=== PATIENT | female | born 1960 | race Caucasian/White ===

== ENCOUNTER 2018-03-20 07:58 | Outpatient (CLI) | payer BC ==
--- NOTE | 2018-03-20 10:05 | MRI ---
MRI OF THE RIGHT ANKLE WITHOUT CONTRAST: INDICATION: History of right ankle pain since December after the patient had an ankle injury where she twisted her an kle. COMPARISON: Right foot radiograph dated 07/15/2014 from [facility]. TECHNIQUE: Multiplanar, multisequence MR images were obtained of the right hind foot without IV contrast. FINDINGS: The ATPFL, PTFL, and calcaneal fibular ligaments are intact. The syndesmotic ligaments are intact. The deep deltoid is intact. Visualized aspects of the spring ligament appear intact. There is a par tial thickness tear of the peroneus brevis at the level of the lateral malleolus with mild peroneal t enosynovitis. The posterior tibialis, flexor digitorum, and flexor hallucis longus tendons are ale l-appearing. The tibialis anterior, EHL, and extensor digitorum longus tendons appear normal. There is normal appearance to the Achilles tendon and Achilles insertion. The attachment to the plantar a spect of the calcaneus of the medial plantar fascia. vein demonstrate some surrounding high increased T2 signal suspicious for very mild plantar fasciitis. Sinus tarsi has a normal signal intensity. T here is a nondisplaced fracture involving the anterior calcaneal process that is best seen on image 8 out series 7. No additional fracture is evident. The visualized Lisfranc ligament appears intact. IMPRESSION: 1. Nondisplaced fracture involving the anterior calcaneal process. 2. Partial thickness tear of the peroneus brevis tendon at the level of the lateral malleolus with m oderate peroneal tenosynovitis. 3. Mild plantar fasciitis of the medial plantar fascial band attachment to the plantar calcaneus. POS: KELSEY
== END 2018-03-20 07:59 | disposition home or self-care (01) ==
LOC: MRI 07:58
PROVIDERS: ATTEND Orthopaedic Surgery
DX: M25.571 Pain in right ankle and joints of right foot (principal); S92.024A Nondisplaced fracture of anterior process of right calcaneus, initial encounter for closed fracture; S86.811A Strain of other muscle(s) and tendon(s) at lower leg level, right leg, initial encounter; M65.871 Other synovitis and tenosynovitis, right ankle and foot; M72.2 Plantar fascial fibromatosis

== ENCOUNTER 2018-04-24 05:55 | Day surgery (SDC) | payer BC ==
[2018-04-23 11:09] VITALS: BMI 27.4
[2018-04-24] MEDS ORDERED: Fentanyl 100 MCG/2 ML VIAL ONE ×3 (06:33→10:02)
[2018-04-24] MEDS ORDERED: Midazolam HCl 2 mg/2 ml Vial ONE (06:33)
[2018-04-24 06:48] LABS: Hemoglobin 14.3 g/dL (12.0-16.0); Mean Corpuscular HGB CONC 32.5 g/dL (32.0-36.0); Mean Corpuscular Hemoglobin 31.7 pg (27.0-31.0); Mean Corpuscular Volume 97.5 fL (78.0-98.0); Mean Platelet Volume 8.7 fL (7.4-10.4); Platelet Count 294 thou/uL (130-400); RBC Distribution Width 12.1 % (11.5-14.5); White Blood Cell (WBC) Count 5.6 thou/uL (4.8-10.8)
[2018-04-24] MEDS ORDERED: CEFAZOLIN 2 GM/50 ML BAG ONE (06:56)
[2018-04-24 07:12] LABS: Anion Gap 12 mmol/L (10-20); BUN (Urea Nitrogen) 16 mg/dL (9.8-20.1); Calc. Creatinine Clearance 72 mL/min (70-130); Carbon Dioxide 28 mmol/L (22-29); Chloride 106 mmol/L (98-107); Estimated GFR-MDRD 57; Glucose 84 mg/dL (70-105); Potassium 4.2 mmol/L (3.5-5.1); Sodium 142 mmol/L (136-145)
[2018-04-24] MEDS ORDERED: Promethazine HCl 25 MG/ML VIAL IM PRN (07:58)
[2018-04-24] MEDS ORDERED: Ondansetron PF 4 MG/2 ML Vial IVP PRN (07:58)
[2018-04-24] MEDS ORDERED: traMADol HCl 50 MG TAB PO PRN ×2 (07:58)
[2018-04-24] MEDS ORDERED: Zolpidem Tartrate 5 MG TAB PO PRN (07:58)
[2018-04-24] MEDS ORDERED: Ropivacaine 0.2% 550 ML 550 ML NERVE BLCK SCH (07:58)
[2018-04-24] MEDS ORDERED: HYDROcodone/Acetaminophen 10/325 mg Tablet PO PRN ×2 (07:58)
[2018-04-24] MEDS ORDERED: Fentanyl 100 MCG/2 ML VIAL IV PRN (07:59)
[2018-04-24] MEDS ORDERED: Bupivacaine PF 0.5% 30 ML VIAL ONE (09:07)
[2018-04-24] MEDS ORDERED: Ropivacaine 0.5% HCl/PF (150 MG/30 ML VIAL) ONE (13:16)
[2018-04-24] MEDS ORDERED: Ropivacaine 0.2% HCl/PF (40 MG/20 ML VIAL) ONE (13:16)
[2018-04-24] MEDS ORDERED: Ketorolac Tromethamine 30 MG/ML VIAL ONE (13:51)
[2018-04-24] MEDS ORDERED: Ondansetron PF 4 MG/2 ML Vial ONE (13:51)
[2018-04-24] MEDS ORDERED: Lidocaine 1% PF 5 ML VIAL ONE (13:51)
[2018-04-24] MEDS ORDERED: PROPOFOL 200 MG/20 ML VIAL ONE (13:51)
--- NOTE | 2018-04-24 18:39 | OP ---
DATE OF PROCEDURE: 04/24/2018 PREOPERATIVE DIAGNOSES: 1. Peroneus brevis tear to right ankle. 2. Anterior process calcaneus fracture. 3. Bilateral great toe ingrown nail deformities. POSTOPERATIVE DIAGNOSES: 1. Peroneus brevis tear to right ankle. 2. Anterior process calcaneus fracture. 3. Bilateral great toe ingrown nail deformities. PROCEDURES: 1. Right foot repair of peroneus brevis tendon. 2. Excision anterior process fragment, right calcaneus. 3. Bilateral marginal nail ablations great toes. ANESTHESIA: General. SURGEON: Darien August M.D. COMPLICATIONS: None. CONDITION: Good. ESTIMATED BLOOD LOSS: Minimal. DRAINS: None. TOURNIQUET: Per anesthesia. TECHNIQUE: Patient was taken to the operating room and placed in supine position. After adequate ge neral anesthesia achieved, the tourniquet was placed on the right upper thigh. Leg was elevated, exs anguinated, and tourniquet inflated prior to incision. On initial evaluation, there is no significan t swelling or ligamentous instability. Full range of motion of the ankle. The posterolateral incisi on was made beginning at the superior peroneal retinaculum extending down distally to the calcaneocub oid joint. The extensor retinaculum was incised. The peroneus longus and brevis tendons were expose d. The longus tendon is normal. Brevis tendon had flattening and incomplete longitudinal splits pos terior to the fibula. There is no instability or retinacular insufficiency. The peroneus brevis was repaired with some 2-0 PDS suture in a running fashion. The retinaculum was then repaired with some 3-0 FiberWire and 0 Vicryl in anatomic position. The calcaneocuboid joint was then exposed along wi th anterior process of the calcaneus after elevation of the extensor brevis muscle. The patient had chronic appearing nonunion of the fragment which was removed without difficulty. He also had some si gnificant degenerative changes in the calcaneocuboid joint with articular thinning and irregularity. It was then irrigated, debrided, and the brevis muscle repaired with some 0 Vicryl. Subcu with 3-0 Vicryl and skin with 4-0 nylon. The great toes were then prepped and draped in the medial and latera l nail margins and had significant chronic ingrown deformities with angulation. The terminal matrix was then exposed and the medial and lateral 2-3 mm of the nail plate was removed. The terminal matri x was resected and after copious irrigation, the proximal oblique incision was closed with some 4-0 n ylon. A sterile bulky dressing was applied. This identical procedure was done on the left great toe nail. There is no evidence of infection. The patient will be limited weightbearing on the right marilou t and limited weightbearing with the left. We will follow up for suture removal.
--- NOTE | 2018-04-26 10:33 | EKG ---
Test Reason : PREOP Blood Pressure : / mmHG Vent. Rate : 061 BPM Atrial Rate : 061 BPM P-R Int : 150 ms QRS Dur : 094 ms QT Int : 430 ms P-R-T Axes : 009 -12 006 degrees QTc Int : 432 ms Normal sinus rhythm Nonspecific T wave abnormality Abnormal ECG When compared with ECG of 14-JUL-2004 18:52, Nonspecific T wave abnormality now evident in Lateral leads Confirmed by DR. Lencho SHIELDS ([id number]) on 04/26/2018 10:33:09 AM Referred By: PUJA Confirmed By:DR. Lencho SHIELDS
== END 2018-04-24 12:10 | disposition home or self-care (01) ==
LOC: SDC 05:55
PROVIDERS: ATTEND Orthopaedic Surgery
PROC: 0QSL0ZZ Reposition Right Tarsal, Open Approach (ICD-10-PCS; principal; 2018-04-24)
PROC: 0LQN0ZZ Repair Right Lower Leg Tendon, Open Approach (ICD-10-PCS; principal; 2018-04-24)
PROC: 0HTRXZZ Resection of Toe Nail, External Approach (ICD-10-PCS; principal; 2018-04-24)
DX: S92.024A Nondisplaced fracture of anterior process of right calcaneus, initial encounter for closed fracture (principal); S86.311A Strain of muscle(s) and tendon(s) of peroneal muscle group at lower leg level, right leg, initial encounter; L60.0 Ingrowing nail; K21.9 Gastro-esophageal reflux disease without esophagitis; Z79.899 Other long term (current) drug therapy; Z88.8 Allergy status to other drugs, medicaments and biological substances; Z91.012 Allergy to eggs; Z91.048 Other nonmedicinal substance allergy status
CPT/HCPCS: 76001; 80048; 85027; 93005; 93010; 96374; A4306; J1885; J2001; J2250; J2405; J2704; J2795; J3010; S0020

== ENCOUNTER 2018-07-17 07:52 | Outpatient (CLI) | payer BC | END 2018-07-17 07:53 | disposition home or self-care (01) | LOC: BICMAMMO 07:52 | PROVIDERS: ATTEND Family Medicine | DX: Z12.31 Encounter for screening mammogram for malignant neoplasm of breast (principal); R92.1 Mammographic calcification found on diagnostic imaging of breast | CPT/HCPCS: 77063; 77067 ==

== ENCOUNTER 2019-03-21 11:37 | Inpatient (IN) | payer BC ==
--- NOTE | 2019-03-21 12:28 | RAD ---
Right hip 2 views HISTORY: Fall. Right hip injury. FINDINGS: Slight shortening of the right femoral neck with irregular sclerotic line. Mild joint space narrowing and osteophytosis. Femoral head contour is maintained. IMPRESSION: Slightly impacted nondisplaced fracture right femoral neck.
--- NOTE | 2019-03-21 12:29 | RAD ---
AP pelvis one view HISTORY: Fall. Hip pain. FINDINGS: Oblique sclerosis across the right femoral neck with slight shortening. No displacement. Mi ld degenerative changes of each hip. Sacroiliac alae and pelvic rings are intact. IMPRESSION: Mildly impacted nondisplaced fracture right femoral neck. Age indeterminate. MRI could be used to evaluate for edema is needed.
[2019-03-21] MEDS ORDERED: Acetaminophen 325 MG TAB ONE (12:32)
[2019-03-21 14:15] LABS: #Basophils 0.1 thou/uL (0.0-0.2); #Eosinphils 0.2 thou/uL (0.0-0.7); #Lymphocytes 1.1 thou/uL (1.20-3.40); #Monocytes 0.4 thou/uL (0.11-0.59); #Neutrophils 6.1 thou/uL (1.40-6.50); %Basophils 0.9 % (0.0-1.0); %Eosinophils 2.4 % (0.0-10.0); %Lymphocytes 14.2 % (21.0-51.0); %Monocytes 4.8 % (0.0-10.0); %Neutrophils 77.7 % (42.0-75.0); Hemoglobin 14.3 g/dL (12.0-16.0); Mean Corpuscular HGB CONC 34.5 g/dL (32.0-36.0); Mean Corpuscular Hemoglobin 33.2 pg (27.0-31.0); Mean Corpuscular Volume 96.4 fL (78.0-98.0); Platelet Count 205 thou/uL (130-400); RBC Distribution Width 11.7 % (11.5-14.5); Red Blood Cell (RBC) Count 4.29 mill/uL (4.20-5.40); White Blood Cell (WBC) Count 7.9 thou/uL (4.8-10.8)
[2019-03-21 14:35] LABS: ALT (SGPT) 15 U/L (8-55); AST (SGOT) 24 U/L (5-34); Albumin 4.8 g/dL (3.5-5.0); Alkaline Phosphatase 79 U/L (40-110); Anion Gap 15 mmol/L (10-20); BUN (Urea Nitrogen) 11 mg/dL (9.8-20.1); Bilirubin, Total 0.9 mg/dL (0.2-1.2); Calc. Creatinine Clearance 0 mL/min (70-130); Calcium 9.7 mg/dL (7.8-10.44); Carbon Dioxide 24 mmol/L (22-29); Chloride 103 mmol/L (98-107); Estimated GFR-MDRD 58; Globulin 3.2 g/dL (2.4-3.5); Glucose 89 mg/dL (70-105); Potassium 3.7 mmol/L (3.5-5.1); Sodium 138 mmol/L (136-145)
[2019-03-21] MEDS ORDERED: Morphine 2 MG/ML SYRINGE SLOW IVP PRN (14:41)
[2019-03-21] MEDS ORDERED: hydrALAZINE 20 MG/ML VIAL SLOW IVP PRN (14:41)
[2019-03-21] MEDS ORDERED: Ondansetron PF 4 MG/2 ML Vial IVP PRN ×2 (14:41→18:35)
[2019-03-21] MEDS ORDERED: Ondansetron ODT 4 MG TAB PO PRN ×2 (14:41→18:35)
[2019-03-21] MEDS ORDERED: Dextrose 5% in Water 1,000 ML IV PRN (14:41)
[2019-03-21] MEDS ORDERED: Dextrose 50% Abboject 50 ML SYRINGE SLOW IVP PRN (14:41)
[2019-03-21] MEDS ORDERED: Sodium Chloride 0.9% 1,000 ML IV SCH (14:45)
[2019-03-21] MEDS ORDERED: traMADol HCl 50 MG TAB PO PRN ×2 (14:50)
[2019-03-21] MEDS ORDERED: Morphine 4 MG/ML VIAL ONE ×2 (14:51→15:57)
--- NOTE | 2019-03-21 15:24 | HP ---
HISTORY OF PRESENT ILLNESS: This is a 58-year-old female who presented to the emergency room with complaints of right hip pain. The patient states that she tripped and fell 2 nights ago. The patient denies feeling weak or dizzy or having any chest pain or shortness of breath prior to falling. The patient states she slipped on a rug. 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 The patient was able to ambulate with severe pain after the fall. The patient did go and see a chiropractor yesterday, reports the adjustment helped some but continued to have pain. The patient reports that the pain is worse with ambulation. The patient denies losing consciousness or hitting her head. The patient does report scraping her left side of her face on her bed frame. The patient denies any other injuries. Last oral intake 0800. REVIEW OF SYSTEMS: A 10-point review of systems is negative unless otherwise indicated in the above HPI. PAST MEDICAL HISTORY: Starla-Danlos syndrome, ectodermal dysplasia. PAST SURGICAL HISTORY: Bilateral knee surgery, sinus surgery, right ankle surgery, multiple foot surgeries, hysterectomy, cholecystectomy, appendectomy, tonsillectomy. ALLERGIES: PHENOBARBITAL, CIPRO. MEDICATIONS: 1. Omeprazole 40 mg at bedtime. 2. Clonazepam 2 mg at bedtime. SOCIAL HISTORY: Denies any drug use, denies smoking history, reports alcohol use occasionally. PHYSICAL EXAMINATION: VITAL SIGNS: Blood pressure 134/88, pulse 95, respirations 18, temperature 98.2 , SpO2 of 95% on room air. GENERAL: Middle-aged female, well appearing, in no acute distress, sitting up in the ER bed. HEENT: Head is normocephalic. Abrasion to the left cheek. Pupils equal and reactive bilateral. No neck tenderness. Normal range of motion of neck. Extraocular muscles intact. Normal nose exam. RESPIRATORY: Equal chest rise and fall. Bilateral breath sounds clear with no wheezing, rales, or rhonchi. CARDIOVASCULAR: Regular rate. Regular rhythm. No murmurs. No pedal edema. ABDOMEN: Soft, nontender, nondistended. EXTREMITIES: Moves all extremities. Positive distal pulses, 2+ in all extremities. Tenderness to right hip. NEUROLOGIC: No focal deficits. No motor deficits. DIAGNOSTIC DATA: A 12-lead EKG; sinus rhythm with nonspecific ST and T-wave abnormalities. Pelvis x-ray; mildly impacted nondisplaced fracture of right femoral neck. Right hip x-ray; impression, slightly impacted nondisplaced fracture of right femoral neck. LABORATORY DATA: WBC 7.9, RBC 4.29, hemoglobin 14.3, hematocrit 41.4, and platelets 205. Sodium 138, potassium 3.7, chloride 103, carbon dioxide 24, BUN 11, creatinine 0.98, estimated GFR 58, glucose 89, AST 24, ALT 15. IMPRESSION: 1. Status post mechanical fall with delayed presentation. 2. Right nondisplaced femoral neck fracture. 3. History of Starla-Danlos syndrome. PLAN: Dr. Jovel with Orthopedic Surgery plans to take the patient to the OR today. The patient will be n.p.o. until postop. We will advance the patient's diet as tolerated. We will place the patient on maintenance IV fluids. We will place the patient on a pain regimen and a bowel regimen. We will place a PT/OT consult to evaluate and treat postop. We will also place a rehab screen in case the patient may need some additional rehab postop, although the patient states that she does not feel that she will need additional rehab. The plan will be discussed with the attending after this dictation. Job ID: [id number] MTDD
--- NOTE | 2019-03-21 15:32 | RAD ---
PORTABLE CHEST ONE VIEW: 03/21/2019 2:31 p.m. HISTORY: Preop evaluation. Right femur fracture. FINDINGS: The heart size is normal. The lungs are expanded without focal areas of consolidation, pneumothoraces or pleural effusions. IMPRESSION: No radiographic evidence of acute cardiopulmonary process. POS: SUHAIL
--- NOTE | 2019-03-21 16:19 | HP ---
HISTORY OF PRESENT ILLNESS: She is a very pleasant 58-year-old woman, who injured herself when she fell plugging in a cord 2 days ago. She has been unable to walk since that time with full weightbearing. She has crutches. PAST MEDICAL HISTORY: Positive for Starla-Danlos syndrome and dermal ectasias. ALLERGIES: PHENOBARBITAL AND ITS DERIVATIVES CAUSE HYPERACTIVITY. SOCIAL HISTORY: Does not smoke. She drinks alcohol occasionally. She lives with her daughter and is normally a community ambulator and works at a bank, stands all day. PHYSICAL EXAMINATION: GENERAL: Shows a pleasant woman, in no distress. HEENT: Normocephalic, atraumatic. LUNGS: Clear. HEART: Regular rate and rhythm. ABDOMEN: Soft and nontender. MUSCULOSKELETAL: Right hip shows pain with rotation. Normal leg lengths. . IMAGING DATA: Radiograph showed a femoral neck fracture, impacted. PLAN: At this time is for percutaneous fixation. I had a very lengthy discussion with her about risk of infection, stiffness, blood clots, most important risk for avascular necrosis and nonunion, which require a total hip arthroplasty. She understands and elected to proceed with surgery. Job ID: [id number]
[2019-03-21] MEDS ORDERED: Lidocaine 1% w/Epinephrine 1:100K 30 ML VIAL ONE (17:13)
[2019-03-21] MEDS ORDERED: Bupivacaine/Epinephrine 0.25% 30 ML VIAL ONE (17:13)
[2019-03-21] MEDS ORDERED: Propofol 500 MG/50 ML VIAL ONE (17:14)
[2019-03-21] MEDS ORDERED: Ketamine 50 MG/ML (10ML VIAL) ONE (17:14)
[2019-03-21] MEDS ORDERED: Fentanyl 100 MCG/2 ML VIAL ONE (17:14)
[2019-03-21] MEDS ORDERED: Midazolam HCl 2 mg/2 ml Vial ONE (17:39)
[2019-03-21] MEDS ORDERED: Ondansetron HCl/PF 4 MG/2 ML Vial IVP PRN (18:34)
[2019-03-21] MEDS ORDERED: Promethazine HCl 25 MG/ML VIAL SLOW IVP PRN (18:34)
[2019-03-21] MEDS ORDERED: Promethazine HCl 25 MG/ML VIAL IM PRN (18:34)
[2019-03-21] MEDS ORDERED: Milk Of Magnesia 30 ML UDCUP PO PRN (18:35)
[2019-03-21] MEDS ORDERED: Bisacodyl 10 MG SUPP PR PRN (18:35)
[2019-03-21] MEDS ORDERED: Fleet Enema 133 ML BOT PR PRN (18:35)
[2019-03-21] MEDS ORDERED: Cepastat Lozenges 1 LOZ PO PRN (18:35)
[2019-03-21] MEDS ORDERED: HYDROcodone/Acetaminophen 10/325 mg Tablet PO PRN ×2 (18:38)
[2019-03-21] MEDS ORDERED: Aspirin Chewable 81 MG TAB PO SCH (19:15)
--- NOTE | 2019-03-21 20:25 | RAD ---
Exam: Right hip 2 views: HISTORY: Status post ORIF Findings/impression: 3 internal fixation screws stabilize the femoral neck subcapital femoral neck fracture.
[2019-03-21] MEDS: Acetaminophen 500 MG TAB PO SCH (20:51)
[2019-03-21] MEDS: Senokot S 8.6-50 MG TAB PO SCH (20:51)
[2019-03-21] MEDS ORDERED: Senokot S 8.6-50 MG TAB PO SCH (21:00)
[2019-03-21] MEDS ORDERED: Famotidine 20 MG TAB PO SCH (21:00)
--- NOTE | 2019-03-22 00:47 | PRG ---
DATE OF SERVICE: 03/21/2019 SUBJECTIVE: Patient was seen this evening, lying in bed. She was resting comfortably and was easily arousable. She reported her pain was well controlled. She is postoperative day zero after fixation of her right hip fracture. She reported she ate a full meal after surgery and a Charlton catheter is in place. OBJECTIVE: VITAL SIGNS: Temperature 98, pulse 70, respirations 16, oxygen saturation 93% on room air, and blood pressure 95/60. GENERAL: Well-appearing elderly female, lying in bed with no signs of acute distress. PULMONARY: Equal chest rise and fall. No signs of acute respiratory distress. EXTREMITIES: 2+ pulses in all extremities. No significant swelling noted. Gross motor and sensation intact. ASSESSMENT: 1. Status post mechanical fall from standing, two days before presentation. 2. Right femoral neck fracture, status post repair. 3. History of Starla-Danlos and ectodermal dysplasia. PLAN: We will continue the patient's regular diet as prescribed postoperatively. We will discontinue her IV fluids and continue current pain medications. She will work with Physical and Occupational Therapy starting tomorrow. Patient would like to go home and not rehab. We will discontinue Charlton tomorrow. Job ID: [id number]
[2019-03-22] MEDS: CEFAZOLIN 2 GM in Premix Bag 1 BAG IVPB SCH ×2 (01:11→08:13)
[2019-03-22] MEDS: Acetaminophen 500 MG TAB PO SCH ×3 (01:12→11:35)
[2019-03-22 04:51] LABS: #Basophils 0.1 thou/uL (0.0-0.2); #Eosinphils 0.3 thou/uL (0.0-0.7); #Lymphocytes 1.4 thou/uL (1.20-3.40); #Monocytes 0.5 thou/uL (0.11-0.59); #Neutrophils 4.8 thou/uL (1.40-6.50); %Basophils 0.8 % (0.0-1.0); %Eosinophils 4.4 % (0.0-10.0); %Lymphocytes 19.8 % (21.0-51.0); %Monocytes 6.5 % (0.0-10.0); %Neutrophils 68.6 % (42.0-75.0); Hemoglobin 12.2 g/dL (12.0-16.0); Mean Corpuscular HGB CONC 33.7 g/dL (32.0-36.0); Mean Platelet Volume 8.8 fL (7.4-10.4); Platelet Count 185 thou/uL (130-400); RBC Distribution Width 11.9 % (11.5-14.5); Red Blood Cell (RBC) Count 3.68 mill/uL (4.20-5.40); White Blood Cell (WBC) Count 6.9 thou/uL (4.8-10.8)
[2019-03-22 05:10] LABS: Phosphorus 4.7 mg/dL (2.3-4.7)
[2019-03-22 05:20] LABS: Anion Gap 10 mmol/L (10-20); BUN (Urea Nitrogen) 12 mg/dL (9.8-20.1); Calc. Creatinine Clearance 69 mL/min (70-130); Calcium 8.2 mg/dL (7.8-10.44); Carbon Dioxide 25 mmol/L (22-29); Chloride 108 mmol/L (98-107); Estimated GFR-MDRD 55; Glucose 91 mg/dL (70-105); Magnesium 2.1 mg/dL (1.6-2.6); Potassium 4.2 mmol/L (3.5-5.1); Sodium 139 mmol/L (136-145)
[2019-03-22] MEDS: Senokot S 8.6-50 MG TAB PO SCH (08:13)
[2019-03-22] MEDS ORDERED: Ferrous Gluconate 324 MG TAB PO SCH (09:00)
[2019-03-22] MEDS ORDERED: Multivitamin W/ Minerals 1 TAB PO SCH (09:00)
[2019-03-22] MEDS ORDERED: Aspirin 81 mg Enteric Coated Tablet PO SCH (09:00)
[2019-03-22] MEDS ORDERED: FLU VACC QS2019-20(6MOS UP)/PF 60 MCG/0.5 ML SYRINGE IM ONE (09:00)
[2019-03-22] MEDS ORDERED: Polyethylene Glycol 3350 17 GM Packet PO SCH (09:00)
--- NOTE | 2019-03-22 09:02 | PRG ---
DATE OF SERVICE: 03/22/2019 SUBJECTIVE: Postop day 1 for an ORIF of hip by Dr. Jovel. Ms. Reid is complaining of some groin pain. She was hemodynamically stable overnight. OBJECTIVE: CHEST: Clear. HEART: Regular rate. ABDOMEN: Soft, nontender. ASSESSMENT: Postop day 1, right hip pinning. PLAN: PT and Case Management to figure out her disposition. There is a possibility she will be able to go home. Job ID: [id number]
[2019-03-22] MEDS ORDERED: HYDROcodone/Acetaminophen 10/325 mg Tablet PO PRN (09:30)
[2019-03-22] MEDS ORDERED: Acetaminophen 650 MG in Premix Bag 1 BAG IVPB SCH (09:45)
--- NOTE | 2019-03-22 11:27 | PRG ---
DATE OF SERVICE: 03/22/2019 SUBJECTIVE: Vira is a 58-year-old female, who is postop day 1 from a right femoral neck impacted fracture, status post cannulated screw fixation. She is doing relatively well. Her pain is controlled. She has very little complaints today. OBJECTIVE: VITAL SIGNS: Her temperature is 97.9, pulse 74, respiratory rate 18, and blood pressure is 99/66. NEUROLOGIC: She is alert and oriented to person, place, time, and situation, responsive, appropriate with examiner. Grossly nonfocal. Her incision is clean and closed. No leg length discrepancy. No shortening. No malrotation. LABORATORY DATA: Hemoglobin and hematocrit are 12.2 and 36.1. IMPRESSION: Postop day 1, cannulated screw fixation secondary to right femoral neck fracture. PLAN: Continue current care. Discontinue Charlton. The patient will be stable for discharge when she is ambulatory and voiding. Job ID: [id number]
[2019-03-22 14:46] VITALS: BP 118/82; TEMP 98.1
--- NOTE | 2019-03-22 16:10 | DIS ---
DATE OF ADMISSION: 03/21/2019 DATE OF DISCHARGE: 03/22/2019 This is Kaity Ferguson NP dictating a report for Chi French MD. CONSULTS: Orthopedic Surgery, Dr. Jovel. PROCEDURES: 1. On 03/21/2019, the patient was taken to the OR for repair of her right femoral neck fracture by Dr. Jovel. 2. On 03/21/2019, right hip x-ray, impression, slightly impacted nondisplaced fracture of the right femoral neck fracture. 3. On 03/21/2019, pelvis x-ray, impression, mildly impacted nondisplaced fracture of the right femoral neck. 4. On 03/21/2019, chest x-ray, impression, no evidence of acute cardiopulmonary process. PRIMARY DIAGNOSES: Mechanical fall, right femoral neck fracture, left cheek abrasion. SECONDARY DIAGNOSES: Starla-Danlos and ectodermal dysplasia history. DISCHARGE MEDICATIONS: 1. Hydrocodone/acetaminophen 10/325 p.o. q.[address] p[address]r.n. pain per Dr. Jovel. 2. Acetaminophen 650 mg q.6 hours as needed. 3. Aspirin 81 mg b.i.d. for 30 days. 4. Clonazepam 1 mg p.o. at bedtime. 5. Omeprazole 20 mg p.o. daily. 6. Senokot-S as needed. DISCONTINUED MEDICATIONS: None. HISTORY OF PRESENT ILLNESS AND HOSPITAL COURSE: This is a 58-year-old female who presented to the emergency room with complaints of right hip pain. The patient states she tripped and fell 2 nights prior to arriving at the emergency room. The patient denied feeling weak or dizzy or having any chest pain or shortness of breath prior to falling. The patient states that she tripped on a rug which caused her to fall. 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 The patient was able to ambulate with severe pain after the fall. The patient did seek care by a chiropractor and had adjustment and states that it helped with the pain, but the pain continued to increase with ambulation. The patient denies any loss of consciousness or hitting her head. The patient was evaluated by Orthopedic Surgery and was taken to the operating room for repair of her right femoral neck fracture. The patient was not able to tolerate tramadol postop for pain management. The patient states that it gave her headache and tramadol does not work. The patient was switched to [place] by Dr. Jovel. The patient was able to ambulate well without any assistance. The patient insisted on being discharged home and did not feel the need for inpatient rehab. On the day of discharge, the patient's vital signs were stable and her exam was unremarkable including cardiopulmonary and GI exam. The patient was deemed stable for discharge home. DISPOSITION: Stable. DISCHARGE INSTRUCTIONS: 1. Location: Home. 2. Diet: Regular diet. 3. Activity: Orthopedic limitations, 50% weightbearing to right lower extremity, the patient is to use crutches or a walker when ambulating. 4. Followup: Follow up with Dr. Jovel in 3 to 4 weeks as directed. Job ID: [id number]
[2019-03-22] MEDS ORDERED: clonazePAM 1 MG TAB PO SCH (21:00)
--- NOTE | 2019-03-23 10:58 | OP ---
DATE OF PROCEDURE: 03/21/2019 PREOPERATIVE DIAGNOSIS: Nondisplaced impacted right femoral neck fracture. POSTOPERATIVE DIAGNOSIS: Nondisplaced impacted right femoral neck fracture. PROCEDURES: Pinning of the right hip. ANESTHESIA: TIVA, local. BLOOD LOSS: Minimal. SPECIMEN: None. COMPLICATIONS: None. DESCRIPTION OF PROCEDURE: The patient was taken to the operating room, where general anesthesia was induced. She received Ancef preoperatively. Right hip was prepped and draped in a sterile fashion. I made a small incision over the hip. Three guide pins were placed for the Synthes percutaneous screws set. Screws were inserted without difficulty with good compression across the fracture. Biplane images were obtained, which showed appropriate screw length and no penetration of the joint. Local anesthesia had been injected preoperatively, and I did a little bit x-ray at the end of the case. A mixture of Marcaine and lidocaine. The skin was closed with 4-0 Monocryl. Sterile dressing was applied. Job ID: [id number]
== END 2019-03-22 14:34 | disposition home or self-care (01) | DRG 481 ==
LOC: ERS 11:37 → SDC/OP 18:16 → SURG A 18:39
PROVIDERS: ADMIT Surgery; ATTEND Surgery
PROC: 0QH634Z Insertion of Internal Fixation Device into Right Upper Femur, Percutaneous Approach (ICD-10-PCS; principal; 2019-03-19)
PROC: 3E02340 Introduction of Influenza Vaccine into Muscle, Percutaneous Approach (ICD-10-PCS; 2019-03-22)
DX: S72.044A Nondisplaced fracture of base of neck of right femur, initial encounter for closed fracture (principal); Q79.60 Ehlers-Danlos syndrome, unspecified; W01.0XXA Fall on same level from slipping, tripping and stumbling without subsequent striking against object, initial encounter; S00.81XA Abrasion of other part of head, initial encounter; Z79.899 Other long term (current) drug therapy; Q82.4 Ectodermal dysplasia (anhidrotic); Z88.8 Allergy status to other drugs, medicaments and biological substances; Z88.1 Allergy status to other antibiotic agents; Z23 Encounter for immunization; Z91.048 Other nonmedicinal substance allergy status; Z91.012 Allergy to eggs; Z90.49 Acquired absence of other specified parts of digestive tract
CPT/HCPCS: 36415; 71045; 72170; 76000; 80048; 80053; 83735; 84100; 84484; 85025; 93005; 96374; 96376; J0131; J0690; J2001; J2250; J2270; J2405; J2704; J3010; Q0162

== ENCOUNTER 2019-11-27 13:36 | Outpatient (CLI) | payer BC | END 2019-11-27 13:37 | disposition home or self-care (01) | LOC: CTENTCT 13:36 | PROVIDERS: ATTEND Student in an Organized Health Care Education/Training Program | DX: J32.9 Chronic sinusitis, unspecified (principal) | CPT/HCPCS: 70486 ==

== ENCOUNTER 2020-07-15 12:23 | Outpatient (CLI) | payer BC ==
--- NOTE | 2020-07-15 13:09 | MMO ---
Bilateral MAMMO Bilat Screen [facility]DI[facility]CRYSTAL. CLINICAL HISTORY: Patient is 59 years old and is seen for screening. The patient has no family history of breast cancer. The patient has no personal history of cancer. VIEWS: The views performed were: bilateral craniocaudal with tomosynthesis and bilateral mediolateral oblique with tomosynthesis. FILMS COMPARED: The present examination has been compared to prior imaging studies performed at [facility] on 07/15/2014, 07/26/2015, 07/30/2016 and 07/17/2018. This study has been interpreted with the assistance of computer-aided detection. MAMMOGRAM FINDINGS: There are scattered fibroglandular densities. There are stable benign appearing calcifications seen in both breasts. There are no suspicious masses, suspicious calcifications, or new areas of architectural distortion. IMPRESSION: THERE IS NO MAMMOGRAPHIC EVIDENCE OF MALIGNANCY. A ROUTINE FOLLOW-UP MAMMOGRAM IN 1 YEAR IS RECOMMENDED. THE RESULTS OF THIS EXAM WERE SENT TO THE PATIENT. ACR BI-RADS Category 2 - Benign finding MAMMOGRAPHY NOTE: 1. A negative mammogram report should not delay a biopsy if a dominant of clinically suspicious mass is present. 2. Approximately 10% to 15% of breast cancers are not detected by mammography. 3. Adenosis and dense breasts may obscure an underlying neoplasm. Reported by: ALBERT CHAVEZ MD Electonically Signed: [id number]
== END 2020-07-15 12:24 | disposition home or self-care (01) ==
LOC: BICMAMMO 12:23
PROVIDERS: ATTEND Family Medicine
DX: Z12.31 Encounter for screening mammogram for malignant neoplasm of breast (principal)
CPT/HCPCS: 77063; 77067

== ENCOUNTER 2020-09-12 15:15 | Outpatient (CLI) | payer BC | END 2020-09-12 15:16 | disposition home or self-care (01) | LOC: BICMRI 15:15 | PROVIDERS: ATTEND Family Medicine | DX: M51.36 Other intervertebral disc degeneration, lumbar region (principal); M54.17 Radiculopathy, lumbosacral region; M47.816 Spondylosis without myelopathy or radiculopathy, lumbar region; N28.9 Disorder of kidney and ureter, unspecified | CPT/HCPCS: 72148 ==

== ENCOUNTER 2020-12-09 10:28 | Outpatient (CLI) | payer BC | END 2020-12-09 10:29 | disposition home or self-care (01) | LOC: BICULT 10:28 | PROVIDERS: ATTEND Family Medicine | DX: N28.1 Cyst of kidney, acquired (principal) | CPT/HCPCS: 76770 ==

== ENCOUNTER 2021-03-01 12:43 | Outpatient (CLI) | payer BC | END 2021-03-01 12:44 | disposition home or self-care (01) | LOC: BICULT 12:43 | PROVIDERS: ATTEND Orthopaedic Surgery | DX: R22.41 Localized swelling, mass and lump, right lower limb (principal) ==

== ENCOUNTER 2021-03-13 08:37 | Outpatient (CLI) | payer BC ==
[2021-03-13 09:58] LABS: Bilirubin Neg (Negative); Blood, Urine Negative (Negative); Clarity Clear (Clear); Glucose, Urine (Dipstick) Normal (Negative); Ketone, Urine Negative (Negative); Leukocyte Negative (Negative); Nitrite Negative (Negative); Protein, Urine (Dipstick) Negative (Neg-Trace); Urobilinogen Normal mg/dL (Less than 2)
[2021-03-13 10:08] LABS: INR-International Normal Ratio 0.9; Prothrombin Time 10.3 sec (9.5-12.1)
[2021-03-13 10:21] LABS: Anion Gap 15 mmol/L (10-20); BUN (Urea Nitrogen) 12 mg/dL (9.8-20.1); Calc. Creatinine Clearance 0 mL/min (70-130); Calcium 10.1 mg/dL (7.8-10.44); Carbon Dioxide 23 mmol/L (23-31); Chloride 105 mmol/L (98-107); Glucose 84 mg/dL (80-115); Potassium 4.6 mmol/L (3.5-5.1); Sodium 138 mmol/L (136-145)
[2021-03-13 10:28] LABS: #Eosinphils 0.1 10x3/uL (0.0-0.5); #Monocytes 0.4 10x3/uL (0.0-1.1); #Neutrophils 5.1 10x3/uL (1.5-8.4); %Basophils 0.6 % (0.0-2.0); %Eosinophils 1.2 % (0.0-6.0); %Lymphocytes 16.3 % (18.0-47.0); %Monocytes 6.1 % (0.0-10.0); %Neutrophils 75.4 % (40.0-75.0); Hemoglobin 12.6 g/dL (12.0-15.5); Mean Corpuscular HGB CONC 32.3 g/dL (32.0-36.0); Mean Corpuscular Hemoglobin 31.6 pg (27.0-33.0); Mean Corpuscular Volume 97.7 fl (81.6-98.3); Platelet Count 226 10x3/uL (150-450); RBC Distribution Width 12.7 % (11.5-14.5); Red Blood Cell (RBC) Count 3.99 10x6/uL (3.90-5.03); White Blood Cell (WBC) Count 6.8 10x3/uL (3.5-10.5)
[2021-03-13 10:38] LABS: Bacteria/HPF None Seen HPF (None Seen); RBC/HPF 0-3 HPF (0-3); Squamous Epithelial None Seen HPF (0-3); WBC/HPF None Seen HPF (0-3)
[2021-03-13 21:37] LABS: SARS-CoV-2 PCR by NAA Not Detected (NotDetected)
== END 2021-03-13 08:38 | disposition home or self-care (01) ==
LOC: LABBT 08:37
PROVIDERS: ATTEND Orthopaedic Surgery
DX: Z01.818 Encounter for other preprocedural examination (principal); M87.851 Other osteonecrosis, right femur; Z20.822 Contact with and (suspected) exposure to COVID-19
CPT/HCPCS: 80048; 81001; 85025; 85610; 87081; 93005; 93010; U0003; U0005

== ENCOUNTER 2021-03-16 05:31 | Observation (INO) | payer BC ==
[2021-03-14 16:35] VITALS: BMI 29.1
[2021-03-16] MEDS ORDERED: Gentamicin 80 MG/2 ML VIAL ONE (05:58)
[2021-03-16] MEDS ORDERED: Vancomycin 1 GM/200 ML BAG ONE (05:58)
[2021-03-16] MEDS ORDERED: Sodium Chloride 0.9% 100 ML ONE (06:01)
[2021-03-16] MEDS ORDERED: Tranexamic Acid 1,000 MG/10 ML VIAL ONE (06:01)
[2021-03-16] MEDS ORDERED: Gentamicin Sulfate 80 MG in Premix Bag 1 BAG IVPB SCH (06:30)
[2021-03-16] MEDS ORDERED: Midazolam HCl 2 mg/2 ml Vial ONE ×2 (06:32→07:53)
[2021-03-16] MEDS ORDERED: Fentanyl 100 MCG/2 ML VIAL ONE ×2 (06:32→06:51)
[2021-03-16] MEDS ORDERED: Dexamethasone 4 mg/ml Vial ONE (06:33)
[2021-03-16] MEDS ORDERED: Propofol 1,000 MG/100 ML VIAL IV ONE (06:51)
[2021-03-16] MEDS ORDERED: Ketamine 50 MG/ML (10ML VIAL) ONE (06:51)
[2021-03-16] MEDS ORDERED: Phenylephrine 10 MG/ML VIAL ONE (06:51)
[2021-03-16] MEDS ORDERED: Scopolamine 1.5 mg/72 hour Patch ONE (06:55)
[2021-03-16] MEDS ORDERED: Dexamethasone 20 MG/5 ML VIAL ONE ×2 (07:10)
[2021-03-16] MEDS ORDERED: Ketorolac Tromethamine 30 MG/ML VIAL ONE (07:10)
[2021-03-16] MEDS ORDERED: ePHEDrine 50 MG/ML VIAL ONE (07:10)
[2021-03-16] MEDS ORDERED: Bupivacaine HCl 0.5%/Epinephrine 1:200,000/PF 30 ml Vial ONE (07:10)
[2021-03-16] MEDS ORDERED: Glycopyrrolate 0.2 MG/ML 5 ML SYRINGE ONE (07:10)
[2021-03-16] MEDS ORDERED: Ondansetron PF 4 MG/2 ML Vial ONE (07:10)
[2021-03-16] MEDS ORDERED: Bupivacaine PF 0.5% 30 ML VIAL ONE (07:18)
[2021-03-16] MEDS ORDERED: HYDROcodone/Acetaminophen 5/325 mg Tablet ONE (11:56)
[2021-03-16] MEDS ORDERED: Morphine 4 MG/ML VIAL ONE ×2 (12:37→14:08)
[2021-03-16] MEDS ORDERED: HYDROcodone/Acetaminophen 10/325 mg Tablet PO PRN (13:37)
[2021-03-16] MEDS ORDERED: Ondansetron PF 4 MG/2 ML Vial IVP PRN (13:37)
[2021-03-16] MEDS ORDERED: Ondansetron ODT 4 MG TAB PO PRN (13:37)
[2021-03-16] MEDS ORDERED: Sodium Chloride 0.9% 1,000 ML IV SCH (13:45)
[2021-03-16] MEDS ORDERED: SUMAtriptan Succinate 25 MG TAB PO PRN (13:53)
[2021-03-16] MEDS ORDERED: HYDROmorphone 0.5 MG/0.5 ML SYRINGE SLOW IVP SCH (14:00)
[2021-03-16] MEDS: HYDROcodone/Acetaminophen 10/325 mg Tablet PO PRN ×2 (16:07→20:19)
[2021-03-16] MEDS ORDERED: Acetaminophen 500 MG TAB PO PRN (17:12)
[2021-03-16] MEDS ORDERED: Promethazine 25 MG TAB PO PRN (17:12)
[2021-03-16] MEDS ORDERED: Senokot S 8.6-50 MG TAB PO PRN (17:26)
[2021-03-16] MEDS ORDERED: Polyethylene Glycol 3350 17 GM Packet PO PRN (17:26)
[2021-03-16] MEDS ORDERED: Clindamycin/D5W 300 MG/50 ML BAG IVPB SCH (18:00)
[2021-03-16] MEDS ORDERED: Melatonin 3 MG TAB PO PRN (20:12)
[2021-03-16] MEDS ORDERED: Famotidine 20 MG TAB PO SCH (21:00)
[2021-03-17] MEDS: HYDROcodone/Acetaminophen 10/325 mg Tablet PO PRN ×2 (02:26→09:19)
[2021-03-17] MEDS ORDERED: Vancomycin 1 GM in Premix Bag 1 BAG IVPB SCH (08:00)
[2021-03-17] MEDS ORDERED: rOPINIRole HCl 0.25 MG TAB PO SCH (09:00)
[2021-03-17] MEDS ORDERED: Gabapentin 300 MG CAP PO SCH ×2 (09:00)
[2021-03-17] MEDS ORDERED: Aspirin 81 mg Enteric Coated Tablet PO SCH (09:00)
[2021-03-17 11:44] VITALS: BP 103/75; TEMP 98.5
== END 2021-03-17 11:45 | disposition home health service (06) ==
LOC: SDC 05:31 → SURG A 15:34
PROVIDERS: ADMIT Orthopaedic Surgery; ATTEND Orthopaedic Surgery
PROC: 0SR903Z Replacement of Right Hip Joint with Ceramic Synthetic Substitute, Open Approach (ICD-10-PCS; principal; 2021-03-17)
DX: M87.051 Idiopathic aseptic necrosis of right femur (principal); M16.7 Other unilateral secondary osteoarthritis of hip; Q79.60 Ehlers-Danlos syndrome, unspecified; Z79.899 Other long term (current) drug therapy; Z88.0 Allergy status to penicillin; Z88.1 Allergy status to other antibiotic agents; Z88.8 Allergy status to other drugs, medicaments and biological substances; Z91.012 Allergy to eggs; Z91.018 Allergy to other foods; Z98.890 Other specified postprocedural states
CPT/HCPCS: 96365; C1776; G0378; J1100; J1580; J1885; J2250; J2270; J2370; J2405; J2704; J3010; J3370; J3490; Q0169; S0020

== ENCOUNTER 2022-01-17 12:28 | Outpatient (CLI) | payer MEDICARE, BC | END 2022-01-17 12:29 | disposition home or self-care (01) | LOC: BICULT 12:28 | PROVIDERS: ATTEND Otolaryngology Plastic Surgery within the Head & Neck | DX: E04.2 Nontoxic multinodular goiter (principal) | CPT/HCPCS: 76536 ==

== ENCOUNTER 2022-02-18 12:18 | Outpatient (CLI) | payer MEDICARE, BC | END 2022-02-18 12:19 | disposition home or self-care (01) | LOC: RAD 12:18 | PROVIDERS: ATTEND Family Medicine | DX: R10.32 Left lower quadrant pain (principal); R93.5 Abnormal findings on diagnostic imaging of other abdominal regions, including retroperitoneum | CPT/HCPCS: 74018 ==

== ENCOUNTER 2022-02-19 09:45 | Emergency (ER) | payer MEDICARE, BC ==
[2022-02-19] MEDS ORDERED: Iopamidol-370 76% 500 ML 1 ML ONE (10:18)
[2022-02-19 10:44] LABS: Bilirubin Negative (Negative); Blood, Urine Negative (Negative); Clarity Clear (Clear); Glucose, Urine (Dipstick) Normal (Negative); Ketone, Urine Negative (Negative); Leukocyte Negative Leu/uL (Negative); Nitrite Negative (Negative); Protein, Urine (Dipstick) Negative (Neg-Trace); Specific Gravity, Urine 1.008 (1.002-1.036); Urobilinogen Normal mg/dL (Less than 2)
[2022-02-19 10:55] LABS: #Eosinphils 0.1 thou/uL (0.0-0.7); #Lymphocytes 1.5 thou/uL (1.20-3.40); #Monocytes 0.5 thou/uL (0.11-0.59); #Neutrophils 5.2 thou/uL (1.40-6.50); %Basophils 0.4 % (0.0-1.0); %Eosinophils 1.6 % (0.0-10.0); %Lymphocytes 20.7 % (21.0-51.0); %Monocytes 6.2 % (0.0-10.0); %Neutrophils 71.1 % (42.0-75.0); Hemoglobin 13.7 g/dL (12.0-16.0); Mean Corpuscular HGB CONC 32.7 g/dL (32.0-36.0); Mean Corpuscular Hemoglobin 31.9 pg (27.0-31.0); Mean Corpuscular Volume 97.7 fL (78.0-98.0); Mean Platelet Volume 9.3 fL (7.4-10.4); Platelet Count 246 thou/uL (130-400); RBC Distribution Width 11.8 % (11.5-14.5); White Blood Cell (WBC) Count 7.4 thou/uL (4.8-10.8)
[2022-02-19 11:01] LABS: ALT (SGPT) 23 U/L (8-55); AST (SGOT) 22 U/L (5-34); Albumin 4.4 g/dL (3.4-4.8); Alkaline Phosphatase 123 U/L (40-110); Anion Gap 14 mmol/L (10-20); BUN (Urea Nitrogen) 7 mg/dL (9.8-20.1); Bilirubin, Total 0.5 mg/dL (0.2-1.2); Calc. Creatinine Clearance 0 mL/min (70-130); Calcium 9.6 mg/dL (7.8-10.44); Carbon Dioxide 24 mmol/L (23-31); Chloride 103 mmol/L (98-107); Estimated GFR 63; Globulin 3.2 g/dL (2.4-3.5); Glucose 92 mg/dL (80-115); Potassium 4.4 mmol/L (3.5-5.1); Protein, Total 7.6 g/dL (5.8-8.1); Sodium 137 mmol/L (136-145)
[2022-02-19] MEDS ORDERED: Ondansetron PF 4 MG/2 ML Vial ONE (11:41)
[2022-02-19] MEDS ORDERED: Morphine 4 MG/ML VIAL ONE (11:41)
== END 2022-02-19 14:57 | disposition home or self-care (01) ==
LOC: ERS 09:45
DX: K57.32 Diverticulitis of large intestine without perforation or abscess without bleeding (principal)
CPT/HCPCS: 36415; 70450; 74177; 80053; 81003; 84484; 85025; 93005; 94760; 96361; 96374; 96375; J2270; J2405; Q9967

== ENCOUNTER 2022-08-23 08:59 | Outpatient (CLI) | payer MEDICARE, BC | END 2022-08-23 09:00 | disposition home or self-care (01) | LOC: BICCT 08:59 | PROVIDERS: ATTEND Otolaryngology Plastic Surgery within the Head & Neck | DX: K12.2 Cellulitis and abscess of mouth (principal) | CPT/HCPCS: 70491; 82565 ==

== ENCOUNTER 2022-12-29 17:40 | Inpatient (IN) | payer MEDICARE, BC ==
[2022-12-29] MEDS ORDERED: Morphine 4 MG/ML VIAL ONE (18:30)
[2022-12-29] MEDS ORDERED: Ondansetron PF 4 MG/2 ML Vial IVP PRN ×2 (19:35→19:46)
[2022-12-29] MEDS ORDERED: Morphine 2 MG/ML VIAL SLOW IVP PRN (19:35)
[2022-12-29] MEDS ORDERED: hydrALAZINE 20 MG/ML VIAL SLOW IVP PRN (19:35)
[2022-12-29] MEDS ORDERED: Ipratropium/Albuterol 3 ML NEB NEB PRN (19:35)
[2022-12-29] MEDS ORDERED: SUMAtriptan Succinate 25 MG TAB PO PRN (19:39)
[2022-12-29] MEDS ORDERED: traMADol HCl 50 MG TAB PO PRN (19:40)
[2022-12-29] MEDS ORDERED: Ketorolac Tromethamine 30 MG/ML VIAL IVP SCH (19:45)
[2022-12-29] MEDS ORDERED: diphenhydrAMINE 25 MG CAP PO PRN (19:46)
[2022-12-29] MEDS ORDERED: HYDROmorphone 10 mg/100 ml CADD IVPB PRN (19:46)
[2022-12-29] MEDS ORDERED: diphenhydrAMINE 50 MG/ML VIAL IM PRN (19:46)
[2022-12-29] MEDS ORDERED: diphenhydrAMINE 50 MG/ML VIAL IVP PRN (19:46)
[2022-12-29] MEDS ORDERED: Promethazine HCl 25 MG/ML VIAL IM PRN (19:46)
[2022-12-29] MEDS ORDERED: Naloxone HCl 0.4 mg/ml Vial IV PRN (19:46)
[2022-12-29] MEDS ORDERED: HYDROmorphone 0.5 MG/0.5 ML SYRINGE ONE (19:50)
[2022-12-29] MEDS ORDERED: Communication Order-Pharmacy FS SCH (20:00)
[2022-12-29] MEDS ORDERED: Famotidine/PF 20 mg/2ml Vial SLOW IVP SCH (21:00)
[2022-12-29] MEDS ORDERED: Ketamine 50 MG/ML (10ML VIAL) ONE (21:25)
[2022-12-29] MEDS: Sodium Chloride 0.9% 1,000 ML IV SCH (23:17)
[2022-12-29] MEDS: Acetaminophen 500 MG TAB PO SCH (23:25)
[2022-12-29] MEDS: Ketorolac Tromethamine 30 MG/ML VIAL IVP SCH (23:25)
[2022-12-29] MEDS: rOPINIRole HCl 0.25 MG TAB PO SCH (23:26)
[2022-12-29] MEDS ORDERED: traMADol HCl 50 MG TAB PO SCH (23:59)
[2022-12-29] MEDS ORDERED: Acetaminophen 500 MG TAB PO SCH (23:59)
[2022-12-30 01:29] VITALS: BMI 31.6
[2022-12-30] MEDS: Sodium Chloride 0.9% 1,000 ML IV SCH ×3 (06:05→20:08)
[2022-12-30] MEDS: Acetaminophen 500 MG TAB PO SCH ×2 (06:06→17:18)
[2022-12-30] MEDS: Ketorolac Tromethamine 30 MG/ML VIAL IVP SCH ×4 (06:06→23:07)
[2022-12-30 06:29] LABS: #Eosinphils 0.1 thou/uL (0.0-0.7); #Monocytes 0.8 thou/uL (0.11-0.59); #Neutrophils 5.5 thou/uL (1.40-6.50); %Basophils 0.5 % (0.0-1.0); %Eosinophils 0.6 % (0.0-10.0); %Lymphocytes 25.9 % (21.0-51.0); %Monocytes 9.3 % (0.0-10.0); %Neutrophils 63.1 % (42.0-75.0); Hemoglobin 13.1 g/dL (12.0-16.0); Mean Corpuscular HGB CONC 32.7 g/dL (32.0-36.0); Mean Corpuscular Hemoglobin 32.7 pg (27.0-31.0); Mean Platelet Volume 11.1 fL (7.4-10.4); Platelet Count 247 10x3/uL (130-400); RBC Distribution Width 14.1 % (11.5-14.5); Red Blood Cell (RBC) Count 4.01 mill/uL (4.20-5.40); White Blood Cell (WBC) Count 8.6 10x3/uL (4.8-10.8)
[2022-12-30 06:54] LABS: Anion Gap 12 mmol/L (10-20); BUN (Urea Nitrogen) 9 mg/dL (9.8-20.1); Calc. Creatinine Clearance 77 mL/min (70-130); Calcium 8.9 mg/dL (7.8-10.44); Carbon Dioxide 24 mmol/L (23-31); Chloride 105 mmol/L (98-107); Estimated GFR 62; Glucose 110 mg/dL (80-115); Potassium 4.2 mmol/L (3.5-5.1); Sodium 137 mmol/L (136-145)
[2022-12-30] MEDS ORDERED: CEFAZOLIN 2 GM in Sodium Chloride 0.9% 100 ML IVPB SCH (07:30)
[2022-12-30 08:14] LABS: INR-International Normal Ratio 1.1; PTT 25.5 sec (22.9-36.1); Prothrombin Time 14.5 sec (12.0-14.7)
[2022-12-30] MEDS ORDERED: Sodium Chloride 0.9% 100 ML ONE (11:14)
[2022-12-30] MEDS ORDERED: CEFAZOLIN 2 GM VIAL ONE (11:14)
[2022-12-30] MEDS ORDERED: fentaNYL 50 mcg/mL 1 mL Vial ONE ×3 (11:21→13:50)
[2022-12-30] MEDS ORDERED: Midazolam HCl 2 mg/2 ml Vial ONE (11:22)
[2022-12-30] MEDS ORDERED: Ketorolac Tromethamine 30 MG/ML VIAL ONE (11:53)
[2022-12-30] MEDS ORDERED: Ondansetron PF 4 MG/2 ML Vial ONE (11:53)
[2022-12-30] MEDS ORDERED: Dexamethasone 20 MG/5 ML VIAL ONE (11:53)
[2022-12-30] MEDS ORDERED: PROPOFOL 200 MG/20 ML VIAL ONE (11:53)
[2022-12-30] MEDS ORDERED: HYDROcodone/Acetaminophen 10/325 mg Tablet PO PRN (13:56)
[2022-12-30] MEDS ORDERED: Cyclobenzaprine 10 MG TAB PO PRN (16:25)
[2022-12-30] MEDS ORDERED: HYDROcodone/Acetaminophen 5/325 mg Tablet PO SCH (16:30)
[2022-12-30] MEDS ORDERED: Morphine 2 MG/ML VIAL SLOW IVP PRN (16:55)
[2022-12-30] MEDS ORDERED: Promethazine 25 MG TAB PO PRN (16:55)
[2022-12-30] MEDS: Acetaminophen 325 MG TAB PO SCH ×2 (17:18→18:54)
[2022-12-30] MEDS: rOPINIRole HCl 0.25 MG TAB PO SCH (20:09)
[2022-12-30] MEDS: Pramipexole Di-HCl 0.125 MG TAB PO SCH (20:09)
[2022-12-30] MEDS: Gabapentin 300 MG CAP PO SCH (20:09)
[2022-12-30] MEDS: Zolpidem Tartrate 5 MG TAB PO PRN (20:09)
[2022-12-30] MEDS: HYDROcodone/Acetaminophen 10/325 mg Tablet PO PRN (20:10)
[2022-12-30] MEDS: CEFAZOLIN 2 GM in Sodium Chloride 0.9% 100 ML IVPB SCH (20:10)
[2022-12-31] MEDS: Ketorolac Tromethamine 30 MG/ML VIAL IVP SCH (05:10)
[2022-12-31] MEDS: Acetaminophen 325 MG TAB PO SCH ×3 (05:14→19:51)
[2022-12-31] MEDS: HYDROcodone/Acetaminophen 10/325 mg Tablet PO PRN (05:14)
[2022-12-31] MEDS: Sodium Chloride 0.9% 1,000 ML IV SCH ×3 (05:15→20:36)
[2022-12-31] MEDS: CEFAZOLIN 2 GM in Sodium Chloride 0.9% 100 ML IVPB SCH ×2 (05:15→12:47)
[2022-12-31 05:44] LABS: #Eosinphils 0.1 thou/uL (0.0-0.7); #Monocytes 0.6 thou/uL (0.11-0.59); #Neutrophils 8.2 thou/uL (1.40-6.50); %Basophils 0.4 % (0.0-1.0); %Eosinophils 0.7 % (0.0-10.0); %Lymphocytes 8.1 % (21.0-51.0); %Monocytes 6.5 % (0.0-10.0); %Neutrophils 83.8 % (42.0-75.0); Hemoglobin 11.3 g/dL (12.0-16.0); Mean Corpuscular HGB CONC 32.2 g/dL (32.0-36.0); Mean Corpuscular Hemoglobin 33.6 pg (27.0-31.0); Mean Platelet Volume 11.1 fL (7.4-10.4); Platelet Count 203 10x3/uL (130-400); RBC Distribution Width 14.2 % (11.5-14.5); Red Blood Cell (RBC) Count 3.36 mill/uL (4.20-5.40); White Blood Cell (WBC) Count 9.8 10x3/uL (4.8-10.8)
[2022-12-31 05:49] LABS: Mean Corpuscular Volume 104.5 fl (78.0-98.0)
[2022-12-31 06:04] LABS: Anion Gap 14 mmol/L (10-20); BUN (Urea Nitrogen) 10 mg/dL (9.8-20.1); Calc. Creatinine Clearance 74 mL/min (70-130); Calcium 8.3 mg/dL (7.8-10.44); Carbon Dioxide 21 mmol/L (23-31); Chloride 107 mmol/L (98-107); Estimated GFR 60; Glucose 116 mg/dL (80-115); Magnesium 1.7 mg/dL (1.6-2.6); Phosphorus 2.7 mg/dL (2.3-4.7); Potassium 4.5 mmol/L (3.5-5.1); Sodium 137 mmol/L (136-145)
[2022-12-31] MEDS ORDERED: Ibuprofen 200 MG TAB PO PRN (07:51)
[2022-12-31] MEDS: Gabapentin 300 MG CAP PO SCH ×3 (09:22→20:34)
[2022-12-31] MEDS ORDERED: hydrOXYzine 10 MG TAB PO PRN (10:32)
[2022-12-31] MEDS ORDERED: HYDROcodone/Acetaminophen 10/325 mg Tablet PO SCH (11:15)
[2022-12-31] MEDS: HYDROcodone/Acetaminophen 10/325 mg Tablet PO SCH ×2 (16:08→20:34)
[2022-12-31] MEDS: rOPINIRole HCl 0.25 MG TAB PO SCH (20:35)
[2022-12-31] MEDS: Zolpidem Tartrate 5 MG TAB PO PRN (20:35)
[2022-12-31] MEDS: Pramipexole Di-HCl 0.125 MG TAB PO SCH (20:35)
[2023-01-01] MEDS: Acetaminophen 325 MG TAB PO SCH ×4 (00:02→19:19)
[2023-01-01] MEDS: HYDROcodone/Acetaminophen 10/325 mg Tablet PO SCH (03:17)
[2023-01-01] MEDS: Sodium Chloride 0.9% 1,000 ML IV SCH (06:19)
[2023-01-01] MEDS ORDERED: traMADol HCl 50 MG TAB PO PRN (08:36)
[2023-01-01 09:02] LABS: #Basophils 0.1 thou/uL (0.0-0.2); #Eosinphils 0.1 thou/uL (0.0-0.7); #Monocytes 0.7 thou/uL (0.11-0.59); #Neutrophils 8.6 thou/uL (1.40-6.50); %Basophils 0.5 % (0.0-1.0); %Eosinophils 1.2 % (0.0-10.0); %Lymphocytes 12.9 % (21.0-51.0); %Monocytes 6.1 % (0.0-10.0); %Neutrophils 78.7 % (42.0-75.0); Hemoglobin 10.4 g/dL (12.0-16.0); Mean Corpuscular HGB CONC 32.4 g/dL (32.0-36.0); Mean Corpuscular Hemoglobin 33.8 pg (27.0-31.0); Mean Corpuscular Volume 104.2 fl (78.0-98.0); Mean Platelet Volume 10.9 fL (7.4-10.4); Platelet Count 182 10x3/uL (130-400); Red Blood Cell (RBC) Count 3.08 mill/uL (4.20-5.40); White Blood Cell (WBC) Count 10.9 10x3/uL (4.8-10.8)
[2023-01-01] MEDS: traMADol HCl 50 MG TAB PO SCH ×2 (10:29→19:12)
[2023-01-01] MEDS: Gabapentin 300 MG CAP PO SCH ×3 (10:30→20:23)
[2023-01-01] MEDS ORDERED: Ipratropium/Albuterol 3 ML NEB NEB PRN (11:05)
[2023-01-01] MEDS: Ipratropium/Albuterol 3 ML NEB NEB SCH ×2 (14:29→18:46)
[2023-01-01] MEDS: Pramipexole Di-HCl 0.125 MG TAB PO SCH (20:22)
[2023-01-01] MEDS: rOPINIRole HCl 0.25 MG TAB PO SCH (20:23)
[2023-01-01 20:38] VITALS: BP 134/80; TEMP 98.7
== END 2023-01-01 20:35 | DRG 494 ==
LOC: ERS 17:40 → SURG A 19:38
PROVIDERS: ADMIT Specialist; ATTEND Specialist
PROC: 0QSG04Z Reposition Right Tibia with Internal Fixation Device, Open Approach (ICD-10-PCS; principal; 2022-12-30)
DX: S82.141A Displaced bicondylar fracture of right tibia, initial encounter for closed fracture (principal); S82.831A Other fracture of upper and lower end of right fibula, initial encounter for closed fracture; S82.251A Displaced comminuted fracture of shaft of right tibia, initial encounter for closed fracture; W11.XXXA Fall on and from ladder, initial encounter; S89.091A Other physeal fracture of upper end of right tibia, initial encounter for closed fracture; M19.90 Unspecified osteoarthritis, unspecified site; F41.9 Anxiety disorder, unspecified; Z88.1 Allergy status to other antibiotic agents; Z91.048 Other nonmedicinal substance allergy status; Z79.899 Other long term (current) drug therapy; Z88.8 Allergy status to other drugs, medicaments and biological substances
CPT/HCPCS: 27781; 36415; 71045; 80048; 83735; 84100; 85025; 85610; 85730; 86850; 86900; 86901; 94640; 96374; 96375; 99152; C1713; G0390; J1100; J1170; J1650; J1885; J2250; J2270; J2405; J2704; J3010; J3490; J7050; J7620

== ENCOUNTER 2023-04-18 07:21 | Outpatient (CLI) | payer MEDICARE, BC | END 2023-04-18 07:22 | disposition home or self-care (01) | LOC: BICCT 07:21 | PROVIDERS: ATTEND Orthopaedic Surgery | DX: S82.251D Displaced comminuted fracture of shaft of right tibia, subsequent encounter for closed fracture with routine healing (principal); S82.402D Unspecified fracture of shaft of left fibula, subsequent encounter for closed fracture with routine healing; M85.80 Other specified disorders of bone density and structure, unspecified site ==

== ENCOUNTER 2023-07-08 15:50 | Emergency (ER) | payer MEDICARE, BC ==
[2023-07-08] MEDS ORDERED: Ondansetron PF 4 MG/2 ML Vial ONE (17:07)
[2023-07-08] MEDS ORDERED: Morphine 4 MG/ML VIAL ONE ×2 (17:07→21:08)
[2023-07-08] MEDS ORDERED: Vancomycin (BATCH) 2 GM/500 ML BAG ONE (17:09)
[2023-07-08 17:13] LABS: Actual Bicarbonate (HCO3v) 20.8 mEq/L (22-28); Base Excess -2.2 mEq/L (-2.0 to +3.0); Calcium, Ionized (venous) 1.06 mmol/L (1.16-1.32); Chloride (VBG) 104 mmol/L (98-106); Hematocrit-VBG 45 % (36.0-47.0); Hemoglobin (Hb) 15.4 g/dL (11.7-16.0); Potassium (VBG) 5.26 mmol/L (3.70-5.30); Sodium 138 mmol/L (133-146); pH (venous) 7.441 (7.32-7.43)
[2023-07-08 17:19] LABS: #Basophils 0.1 thou/uL (0.0-0.2); #Eosinphils 0.2 thou/uL (0.0-0.7); #Monocytes 0.5 thou/uL (0.11-0.59); #Neutrophils 5.3 thou/uL (1.40-6.50); %Basophils 0.6 % (0.0-1.0); %Eosinophils 2.1 % (0.0-10.0); %Neutrophils 65.9 % (42.0-75.0); Hematocrit 45.2 % (36.0-47.0); Hemoglobin 14.9 g/dL (12.0-16.0); Mean Corpuscular Hemoglobin 32.5 pg (27.0-31.0); Mean Corpuscular Volume 98.5 fl (78.0-98.0); Mean Platelet Volume 11.8 fL (7.4-10.4); Platelet Count 228 10x3/uL (130-400); RBC Distribution Width 13.9 % (11.5-14.5); Red Blood Cell (RBC) Count 4.59 mill/uL (4.20-5.40)
[2023-07-08] MEDS ORDERED: Sodium Chloride 0.9% 100 ML ONE (17:25)
[2023-07-08] MEDS ORDERED: Cefepime 2 GM VIAL ONE (17:25)
[2023-07-08 17:49] LABS: ALT (SGPT) 14 U/L (8-55); AST (SGOT) 22 U/L (5-34); Albumin 4.6 g/dL (3.4-4.8); Alkaline Phosphatase 152 U/L (40-110); Anion Gap 16 mmol/L (10-20); BUN (Urea Nitrogen) 12 mg/dL (9.8-20.1); Bilirubin, Total 0.4 mg/dL (0.2-1.2); Calc. Creatinine Clearance 0 mL/min (70-130); Calcium 9.3 mg/dL (7.8-10.44); Carbon Dioxide 20 mmol/L (23-31); Chloride 106 mmol/L (98-107); Estimated GFR 58; Globulin 3.2 g/dL (2.4-3.5); Glucose 73 mg/dL (80-115); Potassium 4.4 mmol/L (3.5-5.1); Protein, Total 7.8 g/dL (5.8-8.1); Sodium 138 mmol/L (136-145)
[2023-07-08 20:20] LABS: Bacteria/HPF None Seen HPF (None Seen); Bilirubin Negative (Negative); Blood, Urine Negative (Negative); CAUTI Indications for Culture Dysuria,urgency,freq; Clarity Clear (Clear); Glucose, Urine (Dipstick) Normal (Negative); Ketone, Urine Negative (Negative); Leukocyte Negative Leu/uL (Negative); Nitrite Negative (Negative); Protein, Urine (Dipstick) Negative (Neg-Trace); RBC/HPF 0-3 HPF (0-3); Squamous Epithelial 0-3 HPF (0-3); Urobilinogen Normal mg/dL (Less than 2); WBC/HPF 0-3 HPF (0-3); pH, Urine 5.5 (5.0-9.0)
[2023-07-08 20:21] LABS: Urine Culture Reflex No No
== END 2023-07-08 21:33 | disposition home or self-care (01) ==
LOC: ERS 15:50
DX: I82.411 Acute embolism and thrombosis of right femoral vein (principal); I82.441 Acute embolism and thrombosis of right tibial vein; I82.431 Acute embolism and thrombosis of right popliteal vein
CPT/HCPCS: 73590; 80053; 81001; 82805; 83605; 85025; 85379; 87040; 93005; 93971; 96365; 96366; 96367; 96375; 96376; 99284; J3370; 36415; J0692; J2270; J2405; J3490

== ENCOUNTER 2023-07-17 11:41 | Inpatient (IN) | payer BC, MEDICARE ==
[2023-07-17] MEDS ORDERED: HYDROcodone/Acetaminophen 5/325 mg Tablet ONE ×2 (12:14→13:27)
[2023-07-17] MEDS ORDERED: HYDROcodone/Acetaminophen 10/325 mg Tablet ONE ×2 (13:31→17:06)
[2023-07-17] MEDS ORDERED: Glucagon 1 MG/ML KIT IM PRN (18:11)
[2023-07-17] MEDS ORDERED: Ondansetron ODT 4 MG TAB PO PRN (18:11)
[2023-07-17] MEDS ORDERED: hydrALAZINE 20 MG/ML VIAL SLOW IVP PRN (18:11)
[2023-07-17] MEDS ORDERED: Ondansetron PF 4 MG/2 ML Vial IVP PRN (18:11)
[2023-07-17] MEDS ORDERED: HYDROcodone/Acetaminophen 5/325 mg Tablet PO PRN (18:11)
[2023-07-17] MEDS ORDERED: Dextrose 5% in Water 1,000 ML IV PRN (18:11)
[2023-07-17] MEDS ORDERED: Dextrose 50% Abboject 50 ML SYRINGE SLOW IVP PRN (18:11)
[2023-07-17] MEDS ORDERED: Vancomycin 1 GM in Premix 1 BAG IVPB SCH (18:30)
[2023-07-17 18:47] LABS: #Eosinphils 0.1 thou/uL (0.0-0.7); #Monocytes 0.7 thou/uL (0.11-0.59); #Neutrophils 7.2 thou/uL (1.40-6.50); %Basophils 0.4 % (0.0-1.0); %Eosinophils 1.1 % (0.0-10.0); %Lymphocytes 21.5 % (21.0-51.0); %Monocytes 6.4 % (0.0-10.0); %Neutrophils 70.2 % (42.0-75.0); Hematocrit 45.2 % (36.0-47.0); Hemoglobin 14.9 g/dL (12.0-16.0); Mean Corpuscular Hemoglobin 32.6 pg (27.0-31.0); Mean Corpuscular Volume 98.9 fl (78.0-98.0); Platelet Count 267 10x3/uL (130-400); RBC Distribution Width 13.9 % (11.5-14.5); Red Blood Cell (RBC) Count 4.57 mill/uL (4.20-5.40); White Blood Cell (WBC) Count 10.3 10x3/uL (4.8-10.8)
[2023-07-17 19:14] LABS: ALT (SGPT) 17 U/L (8-55); AST (SGOT) 19 U/L (5-34); Albumin 4.8 g/dL (3.4-4.8); Alkaline Phosphatase 158 U/L (40-110); Anion Gap 14 mmol/L (10-20); BUN (Urea Nitrogen) 16 mg/dL (9.8-20.1); Bilirubin, Total 1.1 mg/dL (0.2-1.2); Calc. Creatinine Clearance 0 mL/min (70-130); Calcium 9.9 mg/dL (7.8-10.44); Carbon Dioxide 24 mmol/L (23-31); Chloride 100 mmol/L (98-107); Estimated GFR 37; Globulin 3.3 g/dL (2.4-3.5); Glucose 91 mg/dL (80-115); Potassium 4.4 mmol/L (3.5-5.1); Protein, Total 8.1 g/dL (5.8-8.1); Sodium 134 mmol/L (136-145)
[2023-07-17 20:37] VITALS: BMI 33.3
[2023-07-17] MEDS: Acetaminophen/Codeine 30-300mg Tablet PO PRN (21:20)
[2023-07-17] MEDS: HYDROcodone/Acetaminophen 5/325 mg Tablet PO PRN (21:21)
[2023-07-17] MEDS: Sulfameth/Trimethoprim DS 800-160mg TAB PO SCH (21:21)
[2023-07-17] MEDS: rOPINIRole HCl 0.25 MG TAB PO SCH (21:21)
[2023-07-18 04:09] LABS: #Eosinphils 0.2 thou/uL (0.0-0.7); #Monocytes 0.9 thou/uL (0.11-0.59); #Neutrophils 5.7 thou/uL (1.40-6.50); %Basophils 0.5 % (0.0-1.0); %Eosinophils 2.1 % (0.0-10.0); %Lymphocytes 19.9 % (21.0-51.0); %Monocytes 10.2 % (0.0-10.0); %Neutrophils 66.7 % (42.0-75.0); Hematocrit 41.6 % (36.0-47.0); Hemoglobin 13.5 g/dL (12.0-16.0); Mean Corpuscular HGB CONC 32.5 g/dL (32.0-36.0); Mean Corpuscular Hemoglobin 32.5 pg (27.0-31.0); Mean Corpuscular Volume 100.2 fl (78.0-98.0); Mean Platelet Volume 11.1 fL (7.4-10.4); Platelet Count 231 10x3/uL (130-400); Red Blood Cell (RBC) Count 4.15 mill/uL (4.20-5.40); White Blood Cell (WBC) Count 8.5 10x3/uL (4.8-10.8)
[2023-07-18 04:32] LABS: ALT (SGPT) 15 U/L (8-55); AST (SGOT) 21 U/L (5-34); Albumin 4.2 g/dL (3.4-4.8); Alkaline Phosphatase 136 U/L (40-110); Anion Gap 11 mmol/L (10-20); BUN (Urea Nitrogen) 17 mg/dL (9.8-20.1); Bilirubin, Total 0.6 mg/dL (0.2-1.2); Calc. Creatinine Clearance 55 mL/min (70-130); Calcium 9.4 mg/dL (7.8-10.44); Carbon Dioxide 28 mmol/L (23-31); Chloride 102 mmol/L (98-107); Estimated GFR 39; Globulin 2.7 g/dL (2.4-3.5); Glucose 111 mg/dL (80-115); Potassium 5.3 mmol/L (3.5-5.1); Protein, Total 6.9 g/dL (5.8-8.1); Sodium 136 mmol/L (136-145)
[2023-07-18] MEDS: Morphine 2 MG/ML VIAL SLOW IVP PRN (10:31)
[2023-07-18] MEDS ORDERED: HYDROcodone/Acetaminophen 10/325 mg Tablet PO PRN (11:28)
[2023-07-18] MEDS ORDERED: fentaNYL 50 mcg/mL 1 mL Vial ONE ×2 (11:54→15:13)
[2023-07-18] MEDS ORDERED: Midazolam HCl 2 mg/2 ml Vial ONE (11:54)
[2023-07-18] MEDS ORDERED: Bupivacaine HCl 0.5%/Epinephrine 1:200,000/PF 30 ml Vial ONE (12:15)
[2023-07-18] MEDS ORDERED: Bupivacaine PF 0.5% 30 ML VIAL ONE (12:21)
[2023-07-18] MEDS ORDERED: Vancomycin 1 GM/200 ML (FROZEN) BAG ONE (12:52)
[2023-07-18] MEDS ORDERED: fentaNYL 50 mcg/mL 1 mL Vial SLOW IVP PRN (12:57)
[2023-07-18] MEDS ORDERED: Ondansetron PF 4 MG/2 ML Vial ONE (13:00)
[2023-07-18] MEDS ORDERED: Rocuronium Bromide 10 MG/ML (10ML VIAL) ONE (13:00)
[2023-07-18] MEDS ORDERED: Promethazine HCl 25 MG/ML VIAL IM PRN (13:00)
[2023-07-18] MEDS ORDERED: Lidocaine 1% PF 5 ML VIAL ONE (13:00)
[2023-07-18] MEDS ORDERED: fentaNYL PF 100 MCG/2 ML SYRINGE ONE (13:00)
[2023-07-18] MEDS ORDERED: PROPOFOL 20 ML ONE (13:00)
[2023-07-18] MEDS ORDERED: Dexamethasone 20 MG/5 ML VIAL ONE (13:00)
[2023-07-18] MEDS ORDERED: traMADol HCl 50 MG TAB PO PRN ×2 (13:00)
[2023-07-18] MEDS ORDERED: Ondansetron PF 4 MG/2 ML Vial IVP PRN (13:00)
[2023-07-18] MEDS ORDERED: Ropivacaine 0.2% 550 ML 550 ML NERVE BLCK SCH (13:00)
[2023-07-18] MEDS ORDERED: SUGAMMADEX SODIUM 200 MG/2 ML VIAL ONE (13:58)
[2023-07-18] MEDS: Polyvinyl Alcohol 1.4%/Povidone 0.6% Opth Drops R EYE PRN (18:51)
[2023-07-18] MEDS: CEFAZOLIN 2 GM in Sodium Chloride 0.9% 100 ML IVPB SCH (21:30)
[2023-07-18] MEDS: Zolpidem Tartrate 5 MG TAB PO PRN (21:30)
[2023-07-19] MEDS: HYDROcodone/Acetaminophen 10/325 mg Tablet PO PRN ×2 (01:44→08:30)
[2023-07-19 04:55] LABS: #Monocytes 0.7 thou/uL (0.11-0.59); #Neutrophils 9.3 thou/uL (1.40-6.50); %Basophils 0.1 % (0.0-1.0); %Monocytes 6.4 % (0.0-10.0); Hematocrit 38.4 % (36.0-47.0); Hemoglobin 12.7 g/dL (12.0-16.0); Mean Corpuscular HGB CONC 33.1 g/dL (32.0-36.0); Mean Corpuscular Hemoglobin 32.6 pg (27.0-31.0); Mean Corpuscular Volume 98.5 fl (78.0-98.0); Mean Platelet Volume 11.2 fL (7.4-10.4); Platelet Count 255 10x3/uL (130-400); RBC Distribution Width 13.7 % (11.5-14.5); White Blood Cell (WBC) Count 11.1 10x3/uL (4.8-10.8)
[2023-07-19] MEDS: Acetaminophen 325 MG TAB PO PRN (08:27)
[2023-07-19 15:58] VITALS: BP 128/84; TEMP 99.1
[2023-07-19] MEDS ORDERED: Heparin 5,000 UNITS/ML VIAL SC SCH (21:00)
[2023-07-20] MEDS ORDERED: FLU VACC QS2023-24(6MOS UP)/PF 60 MCG/0.5 ML SYRINGE IM ONE (21:00)
== END 2023-07-19 18:17 | disposition home or self-care (01) | DRG 482 ==
LOC: ERS 11:41 → SURG A 18:17
PROVIDERS: ADMIT Surgery; ATTEND Surgery
PROC: 0QSB04Z Reposition Right Lower Femur with Internal Fixation Device, Open Approach (ICD-10-PCS; principal; 2023-07-18)
DX: S72.464A Nondisplaced supracondylar fracture with intracondylar extension of lower end of right femur, initial encounter for closed fracture (principal); Z90.49 Acquired absence of other specified parts of digestive tract; Z90.710 Acquired absence of both cervix and uterus; Z90.89 Acquired absence of other organs; Z98.890 Other specified postprocedural states; Z96.641 Presence of right artificial hip joint; W19.XXXA Unspecified fall, initial encounter; Z88.1 Allergy status to other antibiotic agents; Z91.012 Allergy to eggs; Z88.8 Allergy status to other drugs, medicaments and biological substances
CPT/HCPCS: 36415; 70450; 71045; 72125; 80053; 85025; A4306; C1713; G0390; J0665; J1100; J2250; J2272; J2405; J2704; J2795; J3010; J3370-JW; J3490

== ENCOUNTER 2023-08-30 05:48 | Day surgery (SDC) | payer MEDICARE ==
[2023-08-29 10:49] VITALS: BMI 33.3
[2023-08-30] MEDS ORDERED: Lidocaine 1% PF 5 ML VIAL ONE (07:24)
[2023-08-30] MEDS ORDERED: PROPOFOL 20 ML ONE (07:24)
[2023-08-30] MEDS ORDERED: Ondansetron PF 4 MG/2 ML Vial ONE ×2 (07:24→07:55)
[2023-08-30] MEDS ORDERED: Dexmedetomidine 200 MCG/2 ML VIAL ONE (07:29)
[2023-08-30] MEDS ORDERED: MINERAL OIL/WHITE PETROLATUM 3.5 GM TUBE ONE (07:30)
[2023-08-30] MEDS ORDERED: Vancomycin (BATCH) 1.5 GM/300 ML BAG ONE (07:34)
[2023-08-30] MEDS ORDERED: Bupivacaine PF 0.5% 30 ML VIAL ONE (08:06)
[2023-08-30] MEDS ORDERED: fentaNYL 50 mcg/mL 1 mL Vial ONE (08:06)
== END 2023-08-30 09:45 | disposition home or self-care (01) ==
LOC: SDC 05:48
PROVIDERS: ATTEND Orthopaedic Surgery
PROC: 2W5LXYZ Removal of Other Device on Right Lower Extremity (ICD-10-PCS; principal; 2023-08-30)
DX: T85.848A Pain due to other internal prosthetic devices, implants and grafts, initial encounter (principal); S82.141A Displaced bicondylar fracture of right tibia, initial encounter for closed fracture; S72.491A Other fracture of lower end of right femur, initial encounter for closed fracture; G47.00 Insomnia, unspecified; F41.9 Anxiety disorder, unspecified; J30.2 Other seasonal allergic rhinitis; Z90.49 Acquired absence of other specified parts of digestive tract; Z96.641 Presence of right artificial hip joint; Z98.890 Other specified postprocedural states; Z91.048 Other nonmedicinal substance allergy status; Z91.041 Radiographic dye allergy status; Z88.1 Allergy status to other antibiotic agents; Z88.8 Allergy status to other drugs, medicaments and biological substances; Z88.0 Allergy status to penicillin; Z79.899 Other long term (current) drug therapy; X58.XXXA Exposure to other specified factors, initial encounter
CPT/HCPCS: 20680; 73560; J3010; J3370; J0665; J2405; J2704

== ENCOUNTER 2024-02-26 13:42 | Emergency (ER) | payer MEDICARE ==
[2024-02-26 14:38] LABS: #Basophils 0.04 10x3/uL (0.0-0.2); %Basophils 0.6 % (0.0-1.0); %Eosinophils 1.1 % (0.0-10.0); %Lymphocytes 23.7 % (21.0-51.0); %Monocytes 6.4 % (0.0-10.0); %Neutrophils 67.9 % (42.0-75.0); Hematocrit 46.2 % (36.0-47.0); Mean Corpuscular HGB CONC 32.5 g/dL (32.0-36.0); Mean Corpuscular Hemoglobin 32.2 pg (27.0-31.0); Mean Corpuscular Volume 99.1 fL (78.0-98.0); Mean Platelet Volume 11.3 fL (7.4-10.4); Platelet Count 232 10x3/uL (130-400); RBC Distribution Width 13.2 % (11.5-14.5); Red Blood Cell (RBC) Count 4.66 mill/uL (4.20-5.40)
[2024-02-26 14:57] LABS: Troponin I Less than 0.010 ng/mL (< 0.028)
[2024-02-26 15:00] LABS: ALT (SGPT) 15 U/L (8-55); AST (SGOT) 18 U/L (5-34); Albumin 4.2 g/dL (3.4-4.8); Alkaline Phosphatase 121 U/L (40-110); Anion Gap 18 mmol/L (10-20); BUN (Urea Nitrogen) 12 mg/dL (9.8-20.1); Bilirubin, Total 0.7 mg/dL (0.2-1.2); Calc. Creatinine Clearance 0 mL/min (70-130); Calcium 9.8 mg/dL (7.8-10.44); Carbon Dioxide 19 mmol/L (23-31); Chloride 107 mmol/L (98-107); Estimated GFR 60; Globulin 3.3 g/dL (2.4-3.5); Glucose 93 mg/dL (80-115); Potassium 4.3 mmol/L (3.5-5.1); Protein, Total 7.5 g/dL (5.8-8.1); Sodium 140 mmol/L (136-145)
[2024-02-26] MEDS ORDERED: methylPREDNISolone Sod Succ/PF 125 MG/2 ML VIAL ONE (17:40)
[2024-02-26] MEDS ORDERED: HYDROcodone/Acetaminophen 5/325 mg Tablet ONE (17:40)
== END 2024-02-26 17:48 | disposition home or self-care (01) ==
LOC: ERS 13:42
DX: M79.604 Pain in right leg (principal); R03.0 Elevated blood-pressure reading, without diagnosis of hypertension
CPT/HCPCS: 80053; 84484; 85025; 93005; 93971; 96372; 99284; J2919; 36415

== ENCOUNTER 2024-03-11 14:12 | Outpatient (CLI) | payer MEDICARE | END 2024-03-11 14:13 | disposition home or self-care (01) | LOC: SCSMRI 14:12 | PROVIDERS: ATTEND Nurse Practitioner Family | DX: M47.817 Spondylosis without myelopathy or radiculopathy, lumbosacral region (principal); M47.816 Spondylosis without myelopathy or radiculopathy, lumbar region; M51.369 Other intervertebral disc degeneration, lumbar region without mention of lumbar back pain or lower extremity pain; M51.379 Other intervertebral disc degeneration, lumbosacral region without mention of lumbar back pain or lower extremity pain; M48.061 Spinal stenosis, lumbar region without neurogenic claudication; M48.07 Spinal stenosis, lumbosacral region; N28.1 Cyst of kidney, acquired; D18.09 Hemangioma of other sites; M25.48 Effusion, other site; M51.27 Other intervertebral disc displacement, lumbosacral region | CPT/HCPCS: 72148 ==

== ENCOUNTER 2024-07-08 07:21 | Outpatient (CLI) | payer MEDICARE ==
[2024-07-08] MEDS ORDERED: Magnevist 469MG/ML 20 ML VIAL ONE (11:28)
== END 2024-07-08 07:22 | disposition home or self-care (01) ==
LOC: BICMRI 07:21
PROVIDERS: ATTEND Otolaryngology Plastic Surgery within the Head & Neck
DX: R94.121 Abnormal vestibular function study (principal); H81.4 Vertigo of central origin; I67.89 Other cerebrovascular disease
CPT/HCPCS: 36415; 70553; 82565